=== PATIENT | female | born 1990 | race African-American/Black ===

== ENCOUNTER 2019-09-21 18:00 | Inpatient (IN) | payer OTHER ==
[~2019-09-21] VITALS: Ht 177.8 cm; Wt 83.9 kg
[2019-09-21] MEDS ORDERED: PNV11TAB MT (18:08)
[2019-09-21] MEDS ORDERED: NALOXONE HCL 0.4 MG/ML 1ML VIAL IM PRN (18:15)
[2019-09-21] MEDS ORDERED: LIDOCAINE HCL 1% 20ML VIAL (Pyxis) INJ INFIL SCH (18:15)
[2019-09-21] MEDS ORDERED: METHYLERGONOVINE MALEATE 0.2 MG/ML IM PRN (18:15)
[2019-09-21] MEDS ORDERED: CARBOPROST TROMETHAMINE 250 MCG/ML AMPUL IM PRN (18:15)
[2019-09-21] MEDS: LACTATED RINGERS 1,000 ML IV SCH (18:48)
[2019-09-21] MEDS: DEXT 5%/LR + PITOCIN 20UNITS/L 1,000 ML IV SCH (18:50)
[2019-09-21] MEDS ORDERED: PENICILLIN G POTASSIUM 5 MMU in DEXT 5% WATER 100 ML IV SCH (19:00)
[2019-09-21 19:08] LABS: BASOPHILS % 0.7 % (0.0-2.0); EOSINOPHILS % 1.6 % (0.0-5.0); HEMATOCRIT. 31.7 % (36.0-48.0); HEMOGLOBIN. 10.6 g/dL (12.0-16.0); MEAN CORPUSCULAR HEMOGLOBIN 28.9 pg (28.0-32.0); MEAN CORPUSCULAR VOLUME 86.2 fL (81.0-99.0); MEAN PLATELET VOLUME 9.5 fl (7.4-10.4); MONOCYTES % 11.8 % (2.0-8.0); NEUTROPHILS % 63.9 % (40.0-76.0); PLATELET 250 x1000/uL (130-400); RED BLOOD CELL COUNT 3.67 mill/uL (4.2-5.4); RED CELL DISTRIBUTION WIDTH 13.1 % (11.6-14.6)
[2019-09-21 19:10] LABS: CLARITY URINE CLEAR (CLEAR); COLOR URINE YELLOW (YELLOW); KETONES URINE NEGATIVE (NEGATIVE); LEUKOCYTE ESTERASE URINE 1+ (NEGATIVE); NITRITE URINE NEGATIVE (NEGATIVE); OCCULT BLOOD URINE NEGATIVE (NEGATIVE); PROTEIN URINE NEGATIVE (NEGATIVE); SPECIFIC GRAVITY URINE 1.019 (1.005-1.030)
[2019-09-21 19:13] LABS: CHLORIDE 108 mEq/L (98-107)
[2019-09-21 19:19] LABS: *AMPHETAMINES SCREEN URINE NEGATIVE (NEGATIVE); *BARBITURATES SCREEN URINE NEGATIVE (NEGATIVE)
[2019-09-21 19:20] LABS: *BENZODIAZEPINES SCREEN URINE NEGATIVE (NEGATIVE); *COCAINE SCREEN URINE NEGATIVE (NEGATIVE); CANNABINOID URINE SCREEN NEGATIVE (NEGATIVE); METHADONE URINE SCREEN NEGATIVE (NEGATIVE); OPIATES URINE SCREEN NEGATIVE (NEGATIVE); PHENCYCLIDINE URINE SCREEN NEGATIVE (NEGATIVE)
[2019-09-21 19:22] LABS: INR 0.9; PARTIAL THROMBOPLASTIN TIME 26.8 sec (23.4-31.0); PROTHROMBIN TIME 9.7 sec (9.6-11.0)
[2019-09-21 19:44] LABS: HEPATITIS B SURFACE ANTIGEN NEGATIVE
[2019-09-21] MEDS: PENICILLIN G POTASSIUM 2.5 MMU in DEXTROSE 5% WATER 50 ML IV SCH (23:50)
[2019-09-22] MEDS: LACTATED RINGERS 1,000 ML IV SCH ×3 (02:30→20:13)
[2019-09-22] MEDS: PENICILLIN G POTASSIUM 2.5 MMU in DEXTROSE 5% WATER 50 ML IV SCH ×3 (04:22→20:00)
[2019-09-22] MEDS ORDERED: LABETALOL HCL 5MG/ML VIAL 20ML IV PRN ×2 (04:45)
[2019-09-22] MEDS: BUTORPHANOL TARTRATE 2 MG/ML VIAL IV PRN ×3 (04:51→15:47)
[2019-09-22 11:37] LABS: CHLORIDE 107 mEq/L (98-107)
[2019-09-22 11:42] LABS: D-DIMER 2.17 mg/L FEU (<0.50); INR 0.9; PARTIAL THROMBOPLASTIN TIME 26.8 sec (23.4-31.0); PROTHROMBIN TIME 9.9 sec (9.6-11.0)
[2019-09-22 11:46] LABS: BASOPHILS % 0.5 % (0.0-2.0); EOSINOPHILS % 1.4 % (0.0-5.0); HEMATOCRIT. 31.1 % (36.0-48.0); HEMOGLOBIN. 10.3 g/dL (12.0-16.0); LYMPHOCYTES % 16.3 % (20.0-50.0); MEAN CORPUSCULAR HEMOGLOBIN 28.7 pg (28.0-32.0); MEAN CORPUSCULAR VOLUME 86.3 fL (81.0-99.0); MEAN PLATELET VOLUME 8.9 fl (7.4-10.4); NEUTROPHILS % 68.8 % (40.0-76.0); PLATELET 241 x1000/uL (130-400); RED CELL DISTRIBUTION WIDTH 13.2 % (11.6-14.6)
[2019-09-22] MEDS: DEXT 5%/LR + PITOCIN 20UNITS/L 1,000 ML IV SCH (14:49)
[2019-09-22] MEDS ORDERED: BUTORPHANOL TARTRATE 2 MG/ML VIAL IV PRN (20:45)
[2019-09-22] MEDS ORDERED: MISOPROSTOL 100MCG TABLET VG SCH (22:00)
[2019-09-22] MEDS ORDERED: ONDANSETRON HCL 4MG/2ML INJ IV PRN (23:45)
[2019-09-23] MEDS ORDERED: ROPIVACAINE HCL 2MG/ML (0.2%) 200ML BOTTLE IR ONE (00:15)
[2019-09-23] MEDS ORDERED: ROPIVACAINE HCL/PF EPIDURAL 200 ML EPI NR (00:30)
[2019-09-23] MEDS: LACTATED RINGERS 1,000 ML IV SCH ×2 (00:36→06:18)
[2019-09-23] MEDS: PENICILLIN G POTASSIUM 2.5 MMU in DEXTROSE 5% WATER 50 ML IV SCH ×3 (00:39→08:04)
[2019-09-23] MEDS ORDERED: FENTANYL CITRATE/PF 50MCG/ML 2ML VIAL ONE ×2 (00:41→06:31)
[2019-09-23] MEDS ORDERED: BUPIVACAINE HCL/PF 0.25% (2.5MG/ML) 10ML ONE ×2 (00:42→06:31)
[2019-09-23] MEDS: DEXT 5%/LR + PITOCIN 20UNITS/L 1,000 ML IV SCH ×4 (02:14→11:20)
[2019-09-23 11:00] VITALS: BP 144/75
[2019-09-23] MEDS ORDERED: HEMORRHOIDAL SUPP PR PRN (11:15)
[2019-09-23] MEDS ORDERED: RHO(D) IMMUNE GLOBULIN 300 MCG/SYR IM PRN (11:15)
[2019-09-23] MEDS ORDERED: IBUPROFEN 400MG TABLET PO PRN (11:15)
[2019-09-23] MEDS ORDERED: DIPHENHYDRAMINE 25MG CAPSULE PO PRN (11:15)
[2019-09-23] MEDS: IBUPROFEN 800MG TABLET PO PRN ×2 (11:23→17:08)
[2019-09-23 17:00] VITALS: BP 132/78
[2019-09-23] MEDS: BENZOCAINE/LANOLIN/ALOE VERA SPRAY TOP PRN ×2 (17:08→21:11)
[2019-09-23 19:30] VITALS: BP 145/87
[2019-09-23] MEDS ORDERED: DOCUSATE SODIUM 100MG CAPSULE PO SCH (21:00)
[2019-09-24] MEDS: IBUPROFEN 800MG TABLET PO PRN ×3 (00:10→16:02)
[2019-09-24] MEDS ORDERED: FERR325T6 MT (00:30)
[2019-09-24] MEDS ORDERED: IBUP-2030 PO (00:30)
[2019-09-24 04:00] VITALS: BP 137/87
[2019-09-24 06:34] LABS: HEMATOCRIT 28.9 % (36.0-48.0); HEMOGLOBIN 9.6 g/dL (12.0-16.0)
[2019-09-24] MEDS ORDERED: PRENATAL VIT/FE FUMARATE/FA TABLET PO SCH (09:00)
== END 2019-09-24 16:29 | disposition home or self-care (01) | DRG 807 ==
LOC: OBSVTOIN 18:00 → 8 EST LDRP 18:00 → 8EST 09-23 16:30
PROVIDERS: ADMIT Obstetrics & Gynecology; ATTEND Obstetrics & Gynecology
PROC: 10E0XZZ Delivery of Products of Conception, External Approach (ICD-10-PCS; principal; 2019-09-22)
DX: O13.4 Gestational [pregnancy-induced] hypertension without significant proteinuria, complicating childbirth (principal); Z37.0 Single live birth; O48.0 Post-term pregnancy; O99.02 Anemia complicating childbirth; D64.9 Anemia, unspecified; Z3A.40 40 weeks gestation of pregnancy
CPT/HCPCS: 36415; 80053; 80305; 81003; 84550; 85014; 85018; 85025; 85379; 85384; 86592; 86703; 86762; 86850; 86900; 87340; 99281; J0595; J2405; J2540; J2590; J2795; J3010; J3490; J7060; J7120